=== PATIENT | male | born 1990 | race African-American/Black ===

== ENCOUNTER 2019-04-25 10:31 | Emergency (ER) | payer OTHER ==
[~2019-04-25] VITALS: Ht 170.2 cm; Wt 111.1 kg
[~2019-04-25 10:31] MED LIST: AMOXICILLIN 50500 M1 PO; APAP/CODEINE ELI5 M1 OR; CIPROFLOXIN HC2.5 M1 OPHTHALMIC; ERYTHROMYCIN E3.5 G3 OPHTHALMIC; PROAIR HFA8.5 GM IH; ZPAK PO
[2019-04-25] MEDS ORDERED: TESSALON PERLE100 MG PO (11:19)
[2019-04-25] MEDS ORDERED: SUDAFED 12 HOU120 MG PO (11:19)
[2019-04-25] MEDS ORDERED: FLONASE 0.05%50 MCG NASAL (11:19)
[2019-04-25 11:38] VITALS: BP 145/97
== END 2019-04-25 11:38 | disposition home or self-care (01) ==
LOC: ER 10:31
DX: J06.9 Acute upper respiratory infection, unspecified (principal)

== ENCOUNTER 2020-09-12 10:32 | Emergency (ER) | payer OTHER ==
[~2020-09-12] VITALS: Ht 170.2 cm; Wt 111.6 kg
[~2020-09-12 10:32] MED LIST changes: +FLONASE 0.05%50 MCG NASAL; +SUDAFED 12 HOU120 MG PO; +TESSALON PERLE100 MG PO
[2020-09-12] MEDS ORDERED: NOHOMEMEDICATIONS (10:44)
[2020-09-12 11:41] LABS: HEMATOCRIT 41.1 % (42.0-52.0); MCH 30.6 pg (26.0-34.0); MCHC 33.9 g/dL (28.0-37.0); MCV 90.2 fL (80.0-100.0); RBC 4.56 mil/uL (4.50-6.00); RDW 13.7 % (10.5-14.5); WBC 5.1 thou/uL (4.0-11.0)
[2020-09-12 11:48] LABS: ANION GAP 8 mmol/L (7-16); BUN 12 mg/dL (7-18); CALCIUM 9.2 mg/dL (8.5-10.1); CHLORIDE 100 mmol/L (98-107); CO2 26 mmol/L (21-32); CREATININE 0.9 mg/dL (0.7-1.3); GLUCOSE 111 mg/dL (74-106); POTASSIUM 3.1 mmol/L (3.5-5.1); SODIUM 134 mmol/L (136-145)
[2020-09-12 11:57] LABS: TROPONIN-I <0.06 ng/mL (<0.06)
[2020-09-12] MEDS ORDERED: TESSALON PERLE100 M1 PO (12:44)
[2020-09-12 12:48] VITALS: BP 188/96
--- NOTE | 2020-09-12 16:07 | EKG ---
[facility] [place] [address] ELECTROCARDIOGRAM REPORT Name: OZZIE MIMS Room #: DEP [facility]#: [id number] Admission: 09/12/20 Attend Phys: Discharge: 09/12/20 Date of : [birth year] Report #: [id number] THIS REPORT FOR: cc: PRABHJOT Sarah family physician/PCP PRABHJOT Sarha family physician/PCP Stephen Quiroz MD [facility] THIS REPORT FOR: //name// [facility] ED Test Date: 2020-09-12 Test Time: 10:45:10 Pat Name: OZZIE MIMS Department: Room: Gender: Respite Coordinator: [facility] : 1990 Requested By: Aldo Winston Order Number: [id number] MD: Stephen Quiroz Measurements Intervals [place] Rate: 105 P: 30 WA: 204 QRS: 31 QRSD: 91 T: 28 QT: 336 QTc: 445 Interpretive Statements Sinus tachycardia Borderline prolonged WA interval Probable left atrial enlargement Baseline wander in lead(s) I,II,III,aVR Compared to ECG 11/02/2013 18:36:26 Sinus rhythm no longer present Electronically Signed On 09-12-2020 16:07:19 CDT by Stephen Quiroz [email or web address] <ELECTRONICALLY SIGNED> By: Stephen Quiroz MD, FACC 09/12/20 1607 1045 1045 Stephen Quiroz MD, FACC /EPI
== END 2020-09-12 12:59 | disposition home or self-care (01) ==
LOC: ER 10:32
PROVIDERS: Emergency Medicine
DX: R05 Cough (principal); R07.89 Other chest pain